=== PATIENT | female | born 1975 | race Caucasian/White ===

== ENCOUNTER 2018-06-10 03:08 | Inpatient (IN) | payer MEDICAID ==
[~2018-06-10] VITALS: Ht 160 cm; Wt 70.8 kg
[2018-06-10 03:52] LABS: BASOPHIL % 0.2 % (0-2); PLATELET COUNT 235 x10^3mcL (130-400)
[2018-06-10 03:55] LABS: RED CELL DISTRIBUTION WIDTH 21.7 % (11.5-14.5)
[2018-06-10 03:58] LABS: CALCIUM 8.5 mg/dL (8.5-10.1); CARBON DIOXIDE 24.5 mmol/L (21-32); CHLORIDE SERUM 103 mmol/L (98-107); CREATININE SERUM 0.7 mg/dL (0.6-1.0); GFR1 > 60 mL/min; GLUCOSE SERUM 170 mg/dL (74-106); POTASSIUM SERUM 3.4 mmol/L (3.5-5.1); SODIUM SERUM 139 mmol/L (136-145)
[2018-06-10 04:04] LABS: ALKALINE PHOSPHATASE 94 U/L (46-116); ALT/SGPT 11 U/L (14-59); AST/SGOT 18 U/L (15-37); BILIRUBIN TOTAL 0.33 mg/dL (0.20-1.00); LIPASE 124 IU/L (73-393)
[2018-06-10 04:11] LABS: TOTAL PROTEIN, SERUM 8.3 g/dL (6.4-8.2)
[2018-06-10 05:42] LABS: microscopic required? NO
[2018-06-10 05:51] VITALS: BP 118/45
[2018-06-10 05:58] LABS: UA SPECIFIC GRAVITY <=1.005 (1.005-1.035); urine erythrocyte NEGATIVE (NEGATIVE)
[2018-06-10 06:00] LABS: CHOLESTEROL/HDL RATIO 3.2
[2018-06-10 06:04] LABS: AMPHETAMINE QUAL UR NONE DETECTED (See below)
[2018-06-10 06:52] LABS: CARBON DIOXIDE 23.4 mmol/L (21-32); CHLORIDE SERUM 107 mmol/L (98-107); CREATININE SERUM 0.7 mg/dL (0.6-1.0); GFR1 > 60 mL/min; GLUCOSE SERUM 118 mg/dL (74-106); MAGNESIUM 2.2 mg/dL (1.8-2.4); PHOSPHOROUS 3.1 mg/dL (2.5-4.9); POTASSIUM SERUM 3.9 mmol/L (3.5-5.1); SODIUM SERUM 137 mmol/L (136-145)
[2018-06-10 06:56] LABS: BASOPHIL % 0.1 % (0-2); PLATELET COUNT 193 x10^3mcL (130-400)
[2018-06-10 07:03] LABS: RED CELL DISTRIBUTION WIDTH 21.4 % (11.5-14.5)
[2018-06-10 10:27] VITALS: BP 105/57
[2018-06-10 13:25] VITALS: BP 102/60
[2018-06-10 17:00] VITALS: BP 97/47
[2018-06-10 17:54] LABS: PLATELET COUNT 194 x10^3mcL (130-400)
[2018-06-10 17:59] LABS: BASOPHIL % 0 % (0-2); RED CELL DISTRIBUTION WIDTH 21.2 % (11.5-14.5)
[2018-06-10 18:23] LABS: ovalocyte/elliptocyte 1+; rbc morphology (normal/abnorm) ABNORMAL (NORMAL); target cell (codocyte) 1+
[2018-06-10 21:20] VITALS: BP 113/57
[2018-06-11 05:15] VITALS: BP 108/53
[2018-06-11 06:34] LABS: CALCIUM 8.2 mg/dL (8.5-10.1); CARBON DIOXIDE 23.6 mmol/L (21-32); CHLORIDE SERUM 106 mmol/L (98-107); CREATININE SERUM 0.7 mg/dL (0.6-1.0); GFR1 > 60 mL/min; GLUCOSE SERUM 82 mg/dL (74-106); MAGNESIUM 2.1 mg/dL (1.8-2.4); PHOSPHOROUS 2.9 mg/dL (2.5-4.9); POTASSIUM SERUM 3.5 mmol/L (3.5-5.1); SODIUM SERUM 137 mmol/L (136-145)
[2018-06-11 08:18] LABS: BASOPHIL % 0.6 % (0-2); PLATELET COUNT 196 x10^3mcL (130-400)
[2018-06-11 08:20] LABS: RED CELL DISTRIBUTION WIDTH 21.3 % (11.5-14.5)
[2018-06-11 09:39] LABS: ovalocyte/elliptocyte 1+; rbc morphology (normal/abnorm) ABNORMAL (NORMAL)
[2018-06-11 09:56] VITALS: BP 108/62
[2018-06-11] MEDS ORDERED: FLA500 PO (10:20)
[2018-06-11] MEDS ORDERED: PRI20 PO (10:20)
[2018-06-11 11:34] VITALS: BP 108/62
== END 2018-06-11 12:30 | disposition home or self-care (01) | DRG 243 ==
LOC: ED 03:08 → DU 04:44
PROVIDERS: Emergency Medicine; ADMIT General Practice
DX: K21.9 Gastro-esophageal reflux disease without esophagitis (principal); E83.51 Hypocalcemia; E87.6 Hypokalemia; D50.9 Iron deficiency anemia, unspecified
CPT/HCPCS: C9113; J2270; J2405; J2543; J7030; Q0092

== ENCOUNTER 2018-10-20 09:16 | Emergency (ER) | payer MEDICAID ==
[~2018-10-20] VITALS: Ht 157.5 cm; Wt 76.2 kg
[~2018-10-20 09:16] MED LIST: FLA500 PO; PRI20 PO
[2018-10-20 09:30] VITALS: Ht 157.5 cm; Wt 76.2 kg
[2018-10-20 12:51] LABS: PLATELET COUNT 139 x10^3mcL (130-400)
[2018-10-20 12:56] LABS: RED CELL DISTRIBUTION WIDTH 25.4 % (11.5-14.5)
[2018-10-20 13:03] LABS: CALCIUM 8.9 mg/dL (8.5-10.1); CARBON DIOXIDE 30.4 mmol/L (21-32); CREATININE SERUM 1.2 mg/dL (0.6-1.0); POTASSIUM SERUM 3.7 mmol/L (3.5-5.1)
[2018-10-20 13:10] LABS: ALBUMIN 4.5 g/dL (3.4-5.0); BILIRUBIN TOTAL 0.4 mg/dL (0.20-1.00)
[2018-10-20 13:27] LABS: TOTAL PROTEIN, SERUM 8.7 g/dL (6.4-8.2)
[2018-10-20 13:52] LABS: BAND NEUTROPHIL 0 % (0-10); BASOPHIL 0 % (0-2); MONOCYTE 3 % (0-7); SEGMENTED NEUTROPHILS 77 % (37-75)
[2018-10-20 13:53] LABS: PLATELET MORPHOLOGY PLATELETS DECREASED; rbc morphology (normal/abnorm) ABNORMAL (NORMAL)
[2018-10-20 16:24] VITALS: BP 119/84
== END 2018-10-20 16:25 | disposition home or self-care (01) ==
LOC: ED 09:16
PROVIDERS: Emergency Medicine
DX: K29.70 Gastritis, unspecified, without bleeding (principal); J06.9 Acute upper respiratory infection, unspecified; M54.6 Pain in thoracic spine
CPT/HCPCS: 36415; Q0092

== ENCOUNTER 2019-04-08 09:16 | Emergency (ER) | payer OTHER, MEDICAID ==
[~2019-04-08] VITALS: Ht 157.5 cm; Wt 75.3 kg
[2019-04-08 10:08] VITALS: Ht 157.5 cm; Wt 75.3 kg
[2019-04-08 13:51] VITALS: BP 118/74
== END 2019-04-08 13:51 | disposition home or self-care (01) ==
LOC: ED 09:16
DX: M79.601 Pain in right arm (principal); M62.838 Other muscle spasm